=== PATIENT | male | born 1960 | race Caucasian/White ===

== ENCOUNTER 2019-06-26 11:10 | Emergency (ER) | payer BC, SELFPAY ==
[2019-06-26 11:10] VITALS: BP 175/91; PULSE 52; RESP 20; TEMP 36.2; O2SAT 100
[2019-06-26 12:03] LABS: Add Manual Diff / Slide Review NO; Basophils Absolute Auto 0 /uL (0-100); Basophils Percent Auto 0.3 % (0-2); Eosinophils Absolute Auto 0 /uL (0-450); Eosinophils Percent Auto 0.3 % (2-4); Hematocrit 40.6 % (41-53); Hemoglobin 14.9 g/dL (13.5-17.5); Lymphocytes Absolute Auto 1000 /uL (1100-4500); Lymphocytes Percent Auto 12.4 % (25-40); Mean Corpuscular HGB Conc 36.8 % (30-36); Mean Corpuscular Hemoglobin 31.6 PG (26-34); Monocytes Absolute Auto 300 /uL (0-900); Monocytes Percent Auto 3.3 % (3-14); Neutrophils Absolute Auto 7000 /uL (1500-7000); Neutrophils Percent Auto 83.7 % (50-75); Platelet Count 218 X10^3/uL (150-400); Red Blood Cell Count 4.72 X10^6/uL (4.5-5.9); Red Cell Distribution Width 12.8 % (11.6-14.8); White Blood Cell Count 8.3 X10^3/uL (4.5-11.0)
[2019-06-26 12:09] LABS: Prothrombin Time 11.7 SECONDS (10.1-12.7)
[2019-06-26 12:11] LABS: PTT Partial Thromboplastin Tim 33 SECONDS (26.4-36.2)
[2019-06-26 12:13] LABS: Alanine Aminotransferase 28 IU/L (21-72); Albumin 4.5 g/dL (3.5-5.0); Albumin Globulin Ratio 1.6 (1.0-2.8); Alkaline Phosphatase 78 U/L (38-126); Aspartate Aminotransferase 34 IU/L (17-59); BUN Creatinine Ratio 31.3 (6-22); Bilirubin Total 1.6 mg/dL (0.2-1.3); Blood Urea Nitrogen 25 mg/dL (9-20); Calcium 9.3 mg/dL (8.4-10.2); Carbon Dioxide 30 mmol/L (22-32); Chloride 98 mmol/L (98-107); Estimated Glomerular Filt Rate > 60.0 mL/min (>60); Globulin 2.8 g/dL (1.7-4.1); Glucose 150 mg/dL (70-100); HEMOLYSIS < 15 (0-50); Lipase 69 U/L (23-300); Potassium 3.8 mmol/L (3.4-5.1); Sodium 140 mmol/L (137-145); Total Protein 7.3 g/dL (6.3-8.2)
--- NOTE | 2019-06-26 12:37 | DI.CT.S_ITS ---
PROCEDURE: CT ABDOMEN PELVIS W CON INDICATIONS: upper abdomen pain and bilateral flank pain TECHNIQUE: After the administration of intravenous contrast, 5 mm thick sections acquired from the diaphragm to the symphysis. 5 mm coronal and sagittal reformats were acquired. For radiation dose reduction, the following was used: automated exposure control, adjustment of mA and/or kV according to patient size. COMPARISON: None. FINDINGS: Image quality: Excellent. ABDOMEN: Lung bases: Lung bases are clear. Heart size is normal. Solid organs: Liver is normal in size and enhancement. Gallbladder appears normal. Biliary system is non dilated. Pancreas enhances normally. Spleen is normal in size and enhancement. No adrenal nodules. Kidneys demonstrate normal size and enhancement, without hydronephrosis. Peritoneum and bowel: Bowel loops demonstrate normal wall thickness and caliber. No free fluid or air. Nodes and vessels: No retroperitoneal or mesenteric adenopathy by size criteria. Aorta and inferior vena cava are normal in size. Miscellaneous: No ventral hernias. PELVIS: Genitourinary: Bladder wall thickness is normal. Miscellaneous: No inguinal hernias or adenopathy. Bones: No suspicious bony lesions. No vertebral body compression fractures. IMPRESSION: Normal examination, source of reported upper abdominal pain and bilateral flank pain persisting over 2-3 days is not found. Dictated by: Panfilo Gilliland M.D. on 06/26/2019 at 13:34 Approved by: Panfilo Gilliland M.D. on 06/26/2019 at 13:46
--- NOTE | 2019-06-26 12:58 | ED.ABDPAIN ---
HPI - Abdominal Pain <JULITA Dobbs - Last Filed: 06/27/19 02:24> General Chief Complaint: Abdominal Pain Stated Complaint: spasms in back,abdominal pain Time Seen by Provider: 06/26/19 11:32 Source: patient Mode of arrival: Ambulatory Limitations: no limitations History of Present Illness HPI narrative: This is a 58-year-old male, nonsmoker, who presents with significant other with chief complain of bilateral flanks spasming and burning pain/feeling hot with bilateral upper abdominal spasm in discomfort which started earlier today. Patient reports he was nauseated but did not vomit. He denies chills, urinary symptoms such as urgency, frequency, hematuria, history of kidney stone or previous abdominal surgery. Patient reports not think improves or aggravates this pain. Patient has not had this type of pain in the past. Related Data Home Medications Medication Instructions Recorded Confirmed allopurinol 300 mg PO DAILY 06/26/19 06/26/19 losartan-hydrochlorothiazide 1 tab PO DAILY 06/26/19 06/26/19 Allergies Allergy/AdvReac Type Severity Reaction Status Date / Time No Known Drug Allergies Allergy Verified 06/26/19 11:35 Review of Systems <JULITA Dobbs - Last Filed: 06/27/19 02:24> Review of Systems Narrative: General: Denies fever, chills, fatigue, malaise, sweats. HEENT: Denies sinus pain, ear pain, sore throat, difficulty swallowing, dizziness. Respiratory: Denies dyspnea, cough, wheezing, hemoptysis, sputum. Cardiovascular: Denies chest pain, palpitations, orthopnea, edema. Gastrointestinal: See HPI : Denies dysuria, frequency, incontinence, hematuria, urinary retention. Musculoskeletal: See HPI Skin: Denies rash, skin lesions, or other. Neurologic: Denies weakness, headache, numbness, change in speech, confusion, seizures, incoordination. Psychiatric: No concerning psychosocial issues. 12-point review of systems is negative except for those stated above. PFSH <JULITA Dobbs - Last Filed: 06/27/19 02:24> Surgical History History of knee surgery (Acute) Social History Smoking Status: Never smoker Social History Smoking Status: Never smoker Exam <JULITA Dobbs - Last Filed: 06/27/19 02:24> Narrative Exam Narrative: GEN: Alert, oriented x 3, well appearing and nourished, and in no acute distress. Head: Normal cephalic, atraumatic. No scalp or temporal tenderness, palpable mass or rash. EYES: Pupils are equal, round, and reactive to light and accommodation. Extraocular muscles are intact bilaterally. There is no subconjunctival hemorrhage, exudate and sclera non-icteric. ENT: Bilateral auditory canals and tympanic membranes clear. Hearing grossly intact. Nose without bleeding, purulent discharge or deviation. Facial sinuses nontender to palpate. Mucous membrane moist, no mucosal lesion. Throat without erythema, tonsillar hypertrophy or exudate. Uvula in midline, airway patent. Neck: Trachea in midline. No JVD, non-tender without lymphadenopathy. No masses or thyroid megaly. Supple, non-tender and no meningeal signs. CARDIAC: Normal regular rate and rhythm without murmurs, gallops, or rubs. No chest wall tenderness. No peripheral edema, cyanosis or pallor. Capillary refill is less than 2 seconds. RESPIRATORY: Lungs are cleat to auscultate bilaterally. No cough, wheezes, rales, or rhonchi. No stridor, respiratory distress, increase work of breathing, or accessary muscle used. ABD: Abdomen soft, nontender and non-distended. No guarding or rebound tenderness to palpate. Bounding pulsation in mid abdomen. Bowel sounds are normal in all 4 quadrants. There is no palpable masses or organomegaly. EXT: Full painless ROM of all extremities with no loss of sensation, strength, effusion or edema. SKIN: Warm, dry, normal color for patient. No erythema, lesions or rash over visible areas. BACK: Nontender without deformity or crepitance. No flank tenderness. NEUROLOGICAL: Alert and oriented to place, time and person. Sensation and motor function intact bilaterally. No facial droops, dysphasia. PSYCHIATRIC: Good judgement and reason, without hallucinations, abnormal affect or abnormal behaviors during the examination. Initial Vital Signs Initial Vital Signs: Vital Signs Temperature 97.1 F L 06/26/19 11:10 Pulse Rate 52 L 06/26/19 11:10 Respiratory Rate 20 06/26/19 11:10 Blood Pressure 175/91 H 06/26/19 11:10 Pulse Oximetry 100 06/26/19 11:10 <Alexis Henderson DO - Last Filed: 06/27/19 09:00> Initial Vital Signs Initial Vital Signs: Vital Signs Temperature 97.1 F L 06/26/19 11:10 Pulse Rate 52 L 06/26/19 11:10 Respiratory Rate 20 06/26/19 11:10 Blood Pressure 175/91 H 06/26/19 11:10 Pulse Oximetry 100 06/26/19 11:10 Scores <JULITA Dobbs - Last Filed: 06/27/19 02:24> GCS [place] coma scale eye opening: Spontaneous [place] coma scale verbal response: Orientated [place] coma scale motor response: Obey commands [place] coma scale total score: 15 Course <JULITA Dobbs - Last Filed: 06/27/19 02:24> Orders Ordered: Discontinued Medications Sodium Chloride (Normal Saline 0.9%) 500 mls @ 1,000 mls/hr IV BOLUS ONE Stop: 06/26/19 13:10 Last Infusion: 06/26/19 14:34 Dose: 0 mls/hr Documented by: Admin: 06/26/19 13:25 Dose: 1,000 mls/hr Documented by: CHESTER Ketorolac Tromethamine (Toradol) 30 mg IV NOW ONE Stop: 06/26/19 14:56 Last Admin: 06/26/19 15:11 Dose: 30 mg Documented by: VJ Vital Signs Vital signs: Vital Signs - 8 hr 06/26/19 11:10 Temperature 97.1 F L Pulse Rate 52 L Respiratory Rate 20 Blood Pressure 175/91 H Pulse Oximetry 100 <Alexis Henderson DO - Last Filed: 06/27/19 09:00> Orders Ordered: Discontinued Medications Sodium Chloride (Normal Saline 0.9%) 500 mls @ 1,000 mls/hr IV BOLUS ONE Stop: 06/26/19 13:10 Last Infusion: 06/26/19 14:34 Dose: 0 mls/hr Documented by: Admin: 06/26/19 13:25 Dose: 1,000 mls/hr Documented by: CHESTER Ketorolac Tromethamine (Toradol) 30 mg IV NOW ONE Stop: 06/26/19 14:56 Last Admin: 06/26/19 15:11 Dose: 30 mg Documented by: BTONER Vital Signs Vital signs: Vital Signs - 8 hr 06/26/19 11:10 Temperature 97.1 F L Pulse Rate 52 L Respiratory Rate 20 Blood Pressure 175/91 H Pulse Oximetry 100 MDM - Abdominal Pain <Say Amaya-JULITA Klein - Last Filed: 06/27/19 02:24> Differential Diagnosis Differential diagnosis: Likely abdominal pain, calculus of kidney and other (AAA) Medical Records Attestation: I reviewed the patient's medical records. Lab Data Attestation: I reviewed the patient's lab results. Result diagrams: 06/26/19 11:56 06/26/19 11:56 Labs: Lab Results 06/26/19 06/26/19 06/26/19 Range/Units 11:35 11:56 11:56 WBC 8.3 (4.5-11.0) X10^3/uL RBC 4.72 (4.5-5.9) X10^6/uL Hgb 14.9 (13.5-17.5) g/dL Hct 40.6 L (41-53) % MCV 86.0 (80-100) fL MCH 31.6 (26-34) PG MCHC 36.8 H (30-36) % RDW 12.8 (11.6-14.8) % Plt Count 218 (150-400) X10^3/uL Neut % (Auto) 83.7 H (50-75) % Lymph % (Auto) 12.4 L (25-40) % [place] % (Auto) 3.3 (3-14) % Eos % (Auto) 0.3 L (2-4) % Baso % (Auto) 0.3 (0-2) % Neut # (Auto) 7000 (1488-8491) /uL Lymph # (Auto) 1000 L (9960-6400) /uL [place] # (Auto) 300 (0-900) /uL Eos # (Auto) 0 (0-450) /uL Baso # (Auto) 0 (0-100) /uL PT 11.7 (10.1-12.7) SECONDS INR 1.0 (0.9-1.3) APTT 33 (26.4-36.2) SECONDS Sodium (137-145) mmol/L Potassium (3.4-5.1) mmol/L Chloride (98-107) mmol/L Carbon Dioxide (22-32) mmol/L BUN (9-20) mg/dL Creatinine (0.66-1.25) mg/dL Estimated GFR (>60) mL/min BUN/Creatinine Ratio (6-22) Glucose (70-100) mg/dL Calcium (8.4-10.2) mg/dL Total Bilirubin (0.2-1.3) mg/dL AST (17-59) IU/L ALT (21-72) IU/L Alkaline Phosphatase (38-126) U/L Total Protein (6.3-8.2) g/dL Albumin (3.5-5.0) g/dL Globulin (1.7-4.1) g/dL Albumin/Globulin Ratio (1.0-2.8) Lipase (23-300) U/L Urine RBC 0-1/hpf (0-5/HPF) Urine WBC 0-1/hpf (0-5/HPF) Urine Bacteria Few (2-10) H (None) Urine Mucus 1+ H (Negative) Ur Culture Indicated? Cult not indicated 06/26/19 Range/Units 11:56 WBC (4.5-11.0) X10^3/uL RBC (4.5-5.9) X10^6/uL Hgb (13.5-17.5) g/dL Hct (41-53) % MCV (80-100) fL MCH (26-34) PG MCHC (30-36) % RDW (11.6-14.8) % Plt Count (150-400) X10^3/uL Neut % (Auto) (50-75) % Lymph % (Auto) (25-40) % [place] % (Auto) (3-14) % Eos % (Auto) (2-4) % Baso % (Auto) (0-2) % Neut # (Auto) (4547-5985) /uL Lymph # (Auto) (3351-7242) /uL [place] # (Auto) (0-900) /uL Eos # (Auto) (0-450) /uL Baso # (Auto) (0-100) /uL PT (10.1-12.7) SECONDS INR (0.9-1.3) APTT (26.4-36.2) SECONDS Sodium 140 (137-145) mmol/L Potassium 3.8 (3.4-5.1) mmol/L Chloride 98 (98-107) mmol/L Carbon Dioxide 30 (22-32) mmol/L BUN 25 H (9-20) mg/dL Creatinine 0.80 (0.66-1.25) mg/dL Estimated GFR > 60.0 (>60) mL/min BUN/Creatinine Ratio 31.3 H (6-22) Glucose 150 H (70-100) mg/dL Calcium 9.3 (8.4-10.2) mg/dL Total Bilirubin 1.6 H (0.2-1.3) mg/dL AST 34 (17-59) IU/L ALT 28 (21-72) IU/L Alkaline Phosphatase 78 (38-126) U/L Total Protein 7.3 (6.3-8.2) g/dL Albumin 4.5 (3.5-5.0) g/dL Globulin 2.8 (1.7-4.1) g/dL Albumin/Globulin Ratio 1.6 (1.0-2.8) Lipase 69 (23-300) U/L Urine RBC (0-5/HPF) Urine WBC (0-5/HPF) Urine Bacteria (None) Urine Mucus (Negative) Ur Culture Indicated? Point of care testing: Urine Dip Bedside Urine Glucose Negative Bedside Urine Bilirubin - Negative Bedside Urine Ketone - Negative Urine Specific [place] 1.010 Bedside Urine Occult Blood - Negative Bedside Urine pH 7.5 Bedside Urine Protein +/- 15 Bedside Urine Urobilinogen +/- 1mg Bedside Urine Nitrite - Negative Bedside Urine Leukocytes - Negative Esterase Imaging Data CT scan - abdomen: Radiologist's impression: [address] [address] [address] Scan Report Signed Patient: Anthony Damian#: [id number] : 1Acct:[id number] Age/Sex: 58 / MDate of Service: 06/26/19 Loc: ED Accession Number: [id number] Procedure: CT abdomen pelvis w con Ordering Provider: Say BrennanP PROCEDURE: CT ABDOMEN PELVIS W CON INDICATIONS: upper abdomen pain and bilateral flank pain TECHNIQUE: After the administration of intravenous contrast, 5 mm thick sections acquired from the diaphragm to the symphysis. 5 mm coronal and sagittal reformats were acquired. For radiation dose reduction, the following was used: automated exposure control, adjustment of mA and/or kV according to patient size. COMPARISON: None. FINDINGS: Image quality: Excellent. ABDOMEN: Lung bases: Lung bases are clear. Heart size is normal. Solid organs: Liver is normal in size and enhancement. Gallbladder appears normal. Biliary system is non dilated. Pancreas enhances normally. Spleen is normal in size and enhancement. No adrenal nodules. Kidneys demonstrate normal size and enhancement, without hydronephrosis. Peritoneum and bowel: Bowel loops demonstrate normal wall thickness and caliber. No free fluid or air. Nodes and vessels: No retroperitoneal or mesenteric adenopathy by size criteria. Aorta and inferior vena cava are normal in size. Miscellaneous: No ventral hernias. PELVIS: Genitourinary: Bladder wall thickness is normal. Miscellaneous: No inguinal hernias or adenopathy. Bones: No suspicious bony lesions. No vertebral body compression fractures. IMPRESSION: Normal examination, source of reported upper abdominal pain and bilateral flank pain persisting over 2-3 days is not found. Dictated by: Panfilo Gilliland M.D. on 06/26/2019 at 13:34 Approved by: Panfilo Gilliland M.D. on 06/26/2019 at 13:46 ECG Data Attestation: I personally reviewed and interpreted this ECG as follows: Prior ECG tracings: not available for review Interpretation: Sinus [place]id[place] rate at 55. Normal [place]. No ST elevation or depression. [facility] Narrative Medical decision making narrative: This is a 58-year-old gentleman who presents with upper bilateral abdominal spasming pain with the bilateral flank spasming discomfort. Patient reports mild nausea but no other constitutional symptoms. Patient denied urinary symptoms, history of kidney stones or previous abdominal surgery. Patient denies injuring his back or lifting heavy objects. CBC shows no elevated WBC but mildly elevated neutrophils. Chemistry test was unremarkable. Urine test does not appears to having on infection. Patient has been afebrile while in ED with normal tensive w/o tachycardia. EKG test showed sinus bradycardia without ST elevation or depression. CT of abdomen pelvis shows no acute findings in liver, gallbladder, pancreas, spleen, kidneys with normal aorta and inferior vena cava and no compression fractures in spines. Patient initially declined pain medication for anti nausea medication since his discomfort was well managed with p.o. Aleve that he had taken in the morning. Patient was medicated with IV toward our prior discharged to home with good result. Patient also hydrated with IV fluid while in ED. Patient and spouse agree with treatment plan and no further questions were expressed at this time. Patient is to travel to [facility] for work in a few days. Return precautions were discussed with patient and Patient advised to follow with his primary care physician next week or the following week when he returns to home. Patient advised to take [id number] Tylenol and/or Motrin with food as needed for discomfort. <Alexis Henderson DO - Last Filed: 06/27/19 09:00> Lab Data Labs: Lab Results 06/26/19 06/26/19 06/26/19 Range/Units 11:35 11:56 11:56 WBC 8.3 (4.5-11.0) X10^3/uL RBC 4.72 (4.5-5.9) X10^6/uL Hgb 14.9 (13.5-17.5) g/dL Hct 40.6 L (41-53) % MCV 86.0 (80-100) fL MCH 31.6 (26-34) PG MCHC 36.8 H (30-36) % RDW 12.8 (11.6-14.8) % Plt Count 218 (150-400) X10^3/uL Neut % (Auto) 83.7 H (50-75) % Lymph % (Auto) 12.4 L (25-40) % [place] % (Auto) 3.3 (3-14) % Eos % (Auto) 0.3 L (2-4) % Baso % (Auto) 0.3 (0-2) % Neut # (Auto) 7000 (9900-8277) /uL Lymph # (Auto) 1000 L (9227-8488) /uL [place] # (Auto) 300 (0-900) /uL Eos # (Auto) 0 (0-450) /uL Baso # (Auto) 0 (0-100) /uL PT 11.7 (10.1-12.7) SECONDS INR 1.0 (0.9-1.3) APTT 33 (26.4-36.2) SECONDS Sodium (137-145) mmol/L Potassium (3.4-5.1) mmol/L Chloride (98-107) mmol/L Carbon Dioxide (22-32) mmol/L BUN (9-20) mg/dL Creatinine (0.66-1.25) mg/dL Estimated GFR (>60) mL/min BUN/Creatinine Ratio (6-22) Glucose (70-100) mg/dL Calcium (8.4-10.2) mg/dL Total Bilirubin (0.2-1.3) mg/dL AST (17-59) IU/L ALT (21-72) IU/L Alkaline Phosphatase (38-126) U/L Total Protein (6.3-8.2) g/dL Albumin (3.5-5.0) g/dL Globulin (1.7-4.1) g/dL Albumin/Globulin Ratio (1.0-2.8) Lipase (23-300) U/L Urine RBC 0-1/hpf (0-5/HPF) Urine WBC 0-1/hpf (0-5/HPF) Urine Bacteria Few (2-10) H (None) Urine Mucus 1+ H (Negative) Ur Culture Indicated? Cult not indicated 06/26/19 Range/Units 11:56 WBC (4.5-11.0) X10^3/uL RBC (4.5-5.9) X10^6/uL Hgb (13.5-17.5) g/dL Hct (41-53) % MCV (80-100) fL MCH (26-34) PG MCHC (30-36) % RDW (11.6-14.8) % Plt Count (150-400) X10^3/uL Neut % (Auto) (50-75) % Lymph % (Auto) (25-40) % [place] % (Auto) (3-14) % Eos % (Auto) (2-4) % Baso % (Auto) (0-2) % Neut # (Auto) (7840-8927) /uL Lymph # (Auto) (6837-7306) /uL [place] # (Auto) (0-900) /uL Eos # (Auto) (0-450) /uL Baso # (Auto) (0-100) /uL PT (10.1-12.7) SECONDS INR (0.9-1.3) APTT (26.4-36.2) SECONDS Sodium 140 (137-145) mmol/L Potassium 3.8 (3.4-5.1) mmol/L Chloride 98 (98-107) mmol/L Carbon Dioxide 30 (22-32) mmol/L BUN 25 H (9-20) mg/dL Creatinine 0.80 (0.66-1.25) mg/dL Estimated GFR > 60.0 (>60) mL/min BUN/Creatinine Ratio 31.3 H (6-22) Glucose 150 H (70-100) mg/dL Calcium 9.3 (8.4-10.2) mg/dL Total Bilirubin 1.6 H (0.2-1.3) mg/dL AST 34 (17-59) IU/L ALT 28 (21-72) IU/L Alkaline Phosphatase 78 (38-126) U/L Total Protein 7.3 (6.3-8.2) g/dL Albumin 4.5 (3.5-5.0) g/dL Globulin 2.8 (1.7-4.1) g/dL Albumin/Globulin Ratio 1.6 (1.0-2.8) Lipase 69 (23-300) U/L Urine RBC (0-5/HPF) Urine WBC (0-5/HPF) Urine Bacteria (None) Urine Mucus (Negative) Ur Culture Indicated? Point of care testing: Urine Dip Bedside Urine Glucose Negative Bedside Urine Bilirubin - Negative Bedside Urine Ketone - Negative Urine Specific [place] 1.010 Bedside Urine Occult Blood - Negative Bedside Urine pH 7.5 Bedside Urine Protein +/- 15 Bedside Urine Urobilinogen +/- 1mg Bedside Urine Nitrite - Negative Bedside Urine Leukocytes - Negative Esterase Discharge Plan Departure Patient Disposition: Home Clinical Impression: Acute bilateral upper abdominal pain, Bilateral flank pain Discharge Date/Time: 06/26/19 15:29 Instructions: DI for Abdominal Pain-Adult, DI for Back Spasm Activity Restrictions/Additional Instructions: You have been diagnosed with [bilateral upper abdomen and bilateral flank pain. The CT test on abdomen pelvis and blood tests were unremarkable. Urine test does not show an infection.]. What to do: *Take your medications as directed. You can continue to take [id number] Tylenol and/or Motrin as needed for discomfort. *Follow up with your primary care provider in 2-3 days, call for an appointment. Let them know you were seen in the ED and that we asked you to be seen in follow up. *Return to ED if you have any new, worsening, or concerning symptoms, such as [chest pain, breathing difficulty, unable to tolerate fluids, blood in stool or vomiting, feeling fainting or any acute concerns]. Prescriptions: No Action allopurinol 300 mg tablet 300 mg PO DAILY RF: 0 losartan-hydrochlorothiazide 50-12.5 mg tablet 1 tab PO DAILY RF: 0 Referrals: Joaquim Jerez ARNP [Non-Staff] -
[2019-06-26] MEDS: SODIUM CHLORIDE 0.9% 500 ML 1000 ML IV (13:25)
[2019-06-26 13:55] LABS: Bacteria Urine Few (2-10); Culture Indicated Urine Cult Not Indicated; Mucus Urine 1+ (Negative); RBC Urine 0-1/HPF (0-5/HPF); WBC Urine 0-1/HPF (0-5/HPF)
[2019-06-26 14:50] VITALS: BP 147/84; PULSE 60; RESP 14; TEMP 36.8; O2SAT 100
[2019-06-26] MEDS: KETOROLAC 60 MG/2 ML VIAL 30 MG IV (15:11)
[2019-06-26 15:28] VITALS: BP 148/84; PULSE 60; O2SAT 97
== END 2019-06-26 15:29 | disposition home or self-care (01) ==
PROVIDERS: Emergency Medicine; Emergency Provider Nurse Practitioner Family
DX: R10.10 Upper abdominal pain, unspecified (principal); R10.9 Unspecified abdominal pain
CPT/HCPCS: 36591; 74177; 80053; 81003; 81015; 83690; 85025; 85610; 85730; 93005; 96361; 96374; 99283; 99285; J1885; Q9967

== ENCOUNTER → 2021-04-20 15:42 | Outpatient (CLI) | payer BC, SELFPAY ==
--- NOTE | 2021-04-20 | DI.RAD.S_ITS ---
PROCEDURE: XR KNEE LT 3V INDICATIONS: 3 weeks worsening pain, mostly medial,posterior, prox fib. head TECHNIQUE: 3 views of the knee were acquired. COMPARISON: MR, KNEE WITHOUT CONTRAST, 07/10/2013, 16:37. [facility], CR, KNEE 3V RIGHT, 07/07/2013, 16:19. FINDINGS: Bones: No fractures or dislocations. There is a surgical staple within the lateral tibia proximally. There is minimal joint space narrowing in the medial compartment. Moderate lateral shift of the patella is demonstrated with moderate narrowing in the lateral patellofemoral compartment with mild subchondral sclerosis and osteophytosis. Soft tissues: There is a small joint effusion. There is chondrocalcinosis within the knee most prominent within the medial compartment. IMPRESSION: 1. No acute fracture or dislocation. 2. Postsurgical changes redemonstrated within the lateral tibia proximally. 3. Osteoarthritic changes, most prominent within the lateral patellofemoral compartment where there is moderate joint space narrowing. 4. Nonspecific chondrocalcinosis may reflect possible CPPD arthropathy. 5. Small joint effusion. Dictated by: Grant Llanos M.D. on 04/21/2021 at 13:45 Approved by: Grant Llanos M.D. on 04/21/2021 at 13:48
== END ==
PROVIDERS: PCP Registered Nurse; Referring Provider Registered Nurse; Visit Provider Registered Nurse
DX: M25.562 Pain in left knee (principal); M25.462 Effusion, left knee
CPT/HCPCS: 73562

== ENCOUNTER → 2022-01-01 15:57 | Outpatient (CLI) | payer BC, SELFPAY ==
--- NOTE | 2022-01-01 16:00 | DI.MRI.S_ITS ---
PROCEDURE: MR KNEE LT WO CON INDICATIONS: Unspecified internal derangement of left knee TECHNIQUE: Noncontrast sagittal PD fast spin echo and T2 fast spin echo with fat saturation, sagittal 3-D FLASH with fat saturation; coronal T1 spin echo and PD fast spin echo with fat saturation, and axial PD fast spin echo with fat saturation through the knee. COMPARISON: None. FINDINGS: Image quality: Excellent. Menisci: Linear horizontal high signal intensity within the medial meniscal body and posterior horn is present, demonstrating inferior articular surface extension, indicating horizontal tearing. Radial tearing of the posterior horn medial meniscus adjacent to the meniscal root ligament insertion site. Radial tearing of the free edge of the anterior horn lateral meniscus is present. Cruciate ligaments: The anterior and posterior cruciate ligaments appear intact. Medial structures: The medial collateral ligament appears intact. Visualized portions of the pes anserinus tendons appear normal. Mild T2 signal elevation within and adjacent to the tibial insertion of the semimembranosus. No abnormal bursal fluid. Lateral structures: The lateral collateral ligament demonstrates low-grade partial-thickness tearing at the femoral insertion site. The long and short heads of the biceps femoris tendon appear intact. The popliteus tendon appears normal. Iliotibial band appears normal. Anterior structures: The quadriceps and patellar tendons appear intact. Mild T2 signal elevation within the quadriceps and patellar tendons at the patellar insertion site. Patellar alignment is normal. No femoral trochlear dysplasia or ventral trochlear prominence. No edema in the infrapatellar fat pad. Bones and cartilage: No bone marrow contusions or fractures. Metallic hardware within the proximal tibial laterally. Mild tricompartmental periarticular osteophyte formation. Mild articular cartilage loss diffusely overlies the weight-bearing aspects of the medial femoral condyle and medial tibial plateau. Moderate articular cartilage loss overlies the lateral patellar facet and lateral femoral trochlea. Joint space: There is physiologic knee joint fluid. No Veliz's cyst. Normal appearing synovial plicae are incidentally noted. IMPRESSION: 1. Tricompartmental osteoarthritis with associated articular cartilage loss. 2. Postsurgical sequelae. 3. Medial and lateral meniscal tearing. 4. Partial thickness lateral collateral ligament tear. 5. Mild quadriceps and patellar tendinopathy. 6. Insertional tendinitis of the semimembranosus. Dictated by: Frank Martins M.D. on 01/01/2022 at 16:54 Approved by: Frank Martins M.D. on 01/01/2022 at 16:56
== END ==
PROVIDERS: PCP Registered Nurse; Referring Provider Orthopaedic Surgery; Visit Provider Orthopaedic Surgery
DX: S83.241A Other tear of medial meniscus, current injury, right knee, initial encounter (principal); S83.281A Other tear of lateral meniscus, current injury, right knee, initial encounter; S83.422A Sprain of lateral collateral ligament of left knee, initial encounter; M17.12 Unilateral primary osteoarthritis, left knee; M76.892 Other specified enthesopathies of left lower limb, excluding foot
CPT/HCPCS: 73721

== ENCOUNTER → 2024-09-28 14:17 | Outpatient (CLI) | payer BC, SELFPAY ==
--- NOTE | 2024-09-28 14:20 | DI.RAD.S_ITS ---
PROCEDURE: XR CHEST 2V INDICATIONS: BACK PAIN TECHNIQUE: 2 views of the chest were acquired. COMPARISON: None. FINDINGS: Surgical changes and devices: None. Lungs and pleura: Lungs are clear. No pleural effusions or pneumothorax. Mediastinum: Mediastinal contours are normal. Heart size is normal. Bones and chest wall: No suspicious bony abnormalities. Soft tissues appear unremarkable. IMPRESSION: No acute cardiopulmonary abnormality is seen. Dictated by: Alicia Perez M.D. on 09/29/2024 at 10:39 Approved by: Alicia Perez M.D. on 09/29/2024 at 10:39
== END ==
LOC: RAD 14:19
PROVIDERS: PCP Registered Nurse; Referring Provider Registered Nurse; Visit Provider Registered Nurse
DX: R07.9 Chest pain, unspecified (principal)
CPT/HCPCS: 71046

== ENCOUNTER → 2025-01-18 12:21 | Outpatient (CLI) | payer BC, SELFPAY ==
[2025-01-18 13:53] LABS: Appearance Urine UA CLEAR; Bilirubin Urine UA NEGATIVE (NEGATIVE); Color Urine UA YELLOW; Glucose Urine UA NEGATIVE (Negative); Ketones Urine UA NEGATIVE (NEGATIVE); Leukocyte Esterase Urine UA NEGATIVE (NEGATIVE); Nitrite Urine UA NEGATIVE (Negative); Occult Blood Urine UA NEGATIVE (Negative); Protein Urine UA NEGATIVE (Negative); Specific Gravity Urine UA 1.025 (1.000-1.035); Urobilinogen Urine UA 0.2 E.U./dL (0.2)
--- NOTE | 2025-01-18 14:01 | EKG_ITS ---
[facility] [address] [address] Test Date: 2025-01-18 Pat Name: Jarrell Damian Department: [facility] Room: Gender: Male Machine Ii Trimmer: : 1960 Requested By: Order Number: [id number] Reading MD: Kristopher Garcia MD Measurements Intervals [place] Rate: 64 P: 31 MI: 198 QRS: -2 QRSD: 88 T: 19 QT: 402 QTc: 414 Interpretive Statements Normal sinus rhythm Electronically Signed On 01-18-2025 16:53:15 PDT by Kristopher Garcia MD
[2025-01-18 14:04] LABS: Bacteria Urine Occasional (0-1); Culture Indicated Urine Cult Not Indicated; RBC Urine 0-1/HPF (0-5/HPF); Squamous Epithelial Cell Urine 0-1 /HPF (0-5/HPF); Urine Volume 10mL (spun); WBC Urine 0-1/HPF (0-5/HPF)
[2025-01-18 14:39] LABS: BUN Creatinine Ratio 20.7 (6-22); Blood Urea Nitrogen 19 mg/dL (9-20); Calcium 9.5 mg/dL (8.4-10.2); Carbon Dioxide 31 mmol/L (22-32); Chloride 98 mmol/L (98-107); Estimated Glomerular Filt Rate > 60 mL/min (>60); Glucose 89 mg/dL (80-110); HEMOLYSIS 16 (0-50); Potassium 4.2 mmol/L (3.4-5.1); Sodium 140 mmol/L (137-145)
[2025-01-18 14:43] LABS: Hemoglobin A1C% w Est Avg Glu 5.7 % (4.0-6.0)
[2025-01-18 15:03] LABS: Add Manual Diff / Slide Review NO; Basophils Absolute Auto 0 /uL (0-100); Basophils Percent Auto 0.3 % (0-2); Eosinophils Absolute Auto 100 /uL (0-450); Eosinophils Percent Auto 1.4 % (2-4); Hematocrit 42.7 % (41-53); Hemoglobin 15.4 g/dL (13.5-17.5); Lymphocytes Absolute Auto 1700 /uL (1100-4500); Lymphocytes Percent Auto 23.9 % (25-40); Mean Corpuscular HGB Conc 36.2 % (30-36); Mean Corpuscular Hemoglobin 31.6 PG (26-34); Mean Corpuscular Volume 87.4 fL (80-100); Monocytes Absolute Auto 600 /uL (0-900); Monocytes Percent Auto 7.7 % (3-14); Neutrophils Absolute Auto 4800 /uL (1500-7000); Neutrophils Percent Auto 66.7 % (50-75); Platelet Count 246 X10^3/uL (150-400); Red Blood Cell Count 4.88 X10^6/uL (4.5-5.9); Red Cell Distribution Width 13.1 % (11.6-14.8); White Blood Cell Count 7.2 X10^3/uL (4.5-11.0)
== END ==
PROVIDERS: PCP Registered Nurse; Referring Provider Registered Nurse; Visit Provider Orthopaedic Surgery
DX: Z01.818 Encounter for other preprocedural examination (principal); Z01.812 Encounter for preprocedural laboratory examination; R73.9 Hyperglycemia, unspecified; N39.0 Urinary tract infection, site not specified
CPT/HCPCS: 36415; 80048; 81001; 83036; 85025; 93005; 93010

== ENCOUNTER → 2025-08-27 07:58 | Outpatient (CLI) | payer BC, SELFPAY ==
--- NOTE | 2025-08-27 08:00 | DI.CT.S_ITS ---
PROCEDURE: CT ABDOMEN PELVIS W CON INDICATIONS: Acute RT sided flank pain TECHNIQUE: After the administration of intravenous contrast, axial sections acquired from the lung bases to the pubic symphysis. Coronal and sagittal reformats were performed. For radiation dose reduction, the following was used: automated exposure control, adjustment of mA and/or kV according to patient size. COMPARISON: [facility], CT, CT ABDOMEN PELVIS W CON, 06/26/2019, 12:41. FINDINGS: Image quality: Diagnostic. Lower Chest: No significant findings. ABDOMEN: Liver: Liver is enlarged measuring 23.4 cm with prominent steatosis. Gallbladder: No radiopaque gallstones or wall thickening. Biliary ducts: No biliary dilation. Pancreas: No ductal dilation. Spleen: Size is within normal limits. 4 mm low-attenuation is present too small to definitively characterize. This could represent a small cyst. Adrenal Glands: No adrenal nodules. Kidneys and Ureters: No hydronephrosis. No solid mass. No complex renal cystic lesion which requires follow up. Stomach and Bowel: Normal colonic caliber, without significant wall thickening. Scattered colonic stool without obstruction. Peritoneum: No abnormal intraperitoneal fluid. No free air. Ventral Wall: No significant ventral hernia. Abdominal Nodes: No retroperitoneal or mesenteric adenopathy by size criteria. Vessels: Aorta and inferior vena cava are normal in size. PELVIS: Pelvic Organs: Prostate gland is enlarged. Bladder: No bladder wall thickening, accounting for underdistention. Pelvic Nodes: No enlarged lymph nodes. Miscellaneous: Left fat containing inguinal hernia. Bones: No aggressive osseous abnormality. IMPRESSION: No renal or ureteral calculi. Prostate hypertrophy. Hepatomegaly with steatosis. Dictated by: Iris Jason M.D. on 08/28/2025 at 16:04 Approved by: Iris Jason M.D. on 08/28/2025 at 16:06
[2025-08-27 08:31] LABS: Estimated Glomerular Filt Rate > 60 mL/min (>60)
== END ==
LOC: CT 07:59
PROVIDERS: PCP Registered Nurse; Referring Provider Registered Nurse; Visit Provider Registered Nurse
DX: N40.0 Benign prostatic hyperplasia without lower urinary tract symptoms (principal); K76.0 Fatty (change of) liver, not elsewhere classified; K40.90 Unilateral inguinal hernia, without obstruction or gangrene, not specified as recurrent; R10.A1 Flank pain, right side
CPT/HCPCS: 36415; 74177; 82565; Q9967